=== PATIENT | male | born 1975 | race Hispanic/Latino ===

== ENCOUNTER 2022-07-26 22:39 | Emergency (ER) | payer BC ==
[~2022-07-26] VITALS: Ht 175.3 cm; Wt 98.7 kg
[2022-07-26 22:45] VITALS: BP 156/83
[2022-07-26] MEDS ORDERED: CEFTRIAXONE 1G VIAL IM ONE (23:00)
[2022-07-26] MEDS ORDERED: AZITHROMYCIN 250 MG TABLET PO ONE (23:00)
[2022-07-26 23:04] LABS: APPEARANCE,URINE CLOUDY (CLEAR); BILIRUBIN,URINE NEGATIVE (NEGATIVE); COLOR,URINE LIGHT-YELLOW (YELLOW); GLUCOSE, URINE (UA) NEGATIVE (NEGATIVE); KETONES,URINE NEGATIVE (NEGATIVE); LEUKOCYTE ESTERASE ,URINE 500 Leu/uL (NEGATIVE); NITRATE,URINE NEGATIVE (NEGATIVE); PROTEIN,URINE NEGATIVE (NEGATIVE); UROBILINOGEN,URINE 0.2 mg/dL (0.2-1.0)
[2022-07-26 23:10] LABS: BACTERIA,URINE RARE /HPF (None Seen); WBC,URINE TNTC /HPF (0-1)
[2022-07-26] MEDS ORDERED: PHEN-847 PO (23:37)
[2022-07-26] MEDS ORDERED: DOXY-469 PO (23:37)
== END 2022-07-26 23:45 | disposition home or self-care (01) ==
LOC: EDH 22:39
DX: N39.0 Urinary tract infection, site not specified (principal); I10 Essential (primary) hypertension
CPT/HCPCS: 99284; 87088; 87797; 87486; 81001; 96372; J0696